=== PATIENT | female | born 1945 | race Caucasian/White ===

== ENCOUNTER 2018-11-06 13:39 | Emergency (ER) | payer MEDICARE, BC ==
[~2018-11-06] VITALS: Ht 154.9 cm; Wt 49.9 kg
--- NOTE | 2018-11-06 14:02 | NUR ---
PT BROUGHT IN BY WHEEL CHAIR FOR PT TRIP AND FALL HURTUING HIP PT ACCOMPANIED BY FAMILY.
[2018-11-06] MEDS ORDERED: IV NS 0.9% 500 ML BAG IV ONE (14:30)
[2018-11-06] MEDS ORDERED: ONDANSETRON HCL/PF 4 MG/2 ML VIAL IVP ONE (14:30)
[2018-11-06] MEDS ORDERED: MORPHINE SULFATE INJ 2 MG/ML DISP.SYRIN IV ONE (14:30)
[2018-11-06] MEDS ORDERED: MORPHINE SULFATE INJ 4 MG/ML DISP.SYRIN ONE (14:31)
[2018-11-06] MEDS ORDERED: ONDANSETRON HCL/PF 4 MG/2 ML VIAL ONE (14:31)
[2018-11-06 17:00] VITALS: BP 143/67
--- NOTE | 2018-11-06 17:01 | NUR ---
PT DISCHARGED HOME WITH SPOUSE PT TAKEN TO CAR AND PLACED INTO SEAT SAFETLY. PT GIVEN ACI AND PRESCRIPTION
== END 2018-11-06 17:02 | disposition home or self-care (01) ==
LOC: ER 13:41
DX: S02.2XXA Fracture of nasal bones, initial encounter for closed fracture (principal); S00.83XA Contusion of other part of head, initial encounter; R51 Headache; I10 Essential (primary) hypertension; Z88.2 Allergy status to sulfonamides; W01.198A Fall on same level from slipping, tripping and stumbling with subsequent striking against other object, initial encounter; Y93.89 Activity, other specified; Y92.89 Other specified places as the place of occurrence of the external cause; Y99.8 Other external cause status
CPT/HCPCS: 70450; 70486; 72125; 96374; 96375; 99284; J2270; J2405; J7040